=== PATIENT | male | born 1950 | race Two or more races ===

== ENCOUNTER 2018-09-20 16:27 | Emergency (ER) | payer OTHER ==
[2018-09-20] MEDS: hydrALAzine 20 MG INJ IV (17:21)
[2018-09-20 17:22] LABS: ADD MAN DIFF? NO
[2018-09-20 17:25] LABS: BASOPHIL # 0.1 10^3/ul (0.0-0.1); BASOPHILS % 0.6 % (0.0-2.0); EOSINOPHILS # 0.2 10^3/ul (0.0-0.5); EOSINOPHILS % 2.9 % (0.0-7.0); HEMATOCRIT 44.7 % (42.0-52.0); HEMOGLOBIN 13.6 g/dl (14.0-18.0); LYMPHOCYTES # 2.3 10^3/ul (0.8-2.9); LYMPHOCYTES % 27.5 % (15.0-51.0); MEAN CORPUSCULAR HEMOGLOBIN 25.4 pg (29.0-33.0); MEAN CORPUSCULAR HGB CONC 30.4 g/dl (32.0-37.0); MEAN CORPUSCULAR VOLUME 83.6 fl (82.0-101.0); MEAN PLATELET VOLUME 11.4 fl (7.4-10.4); MONOCYTE # 0.6 10^3/ul (0.3-0.9); NEUTROPHILS % 61.8 % (39.0-77.0); PLATELET COUNT 182 10^3/UL (140-415); RED BLOOD COUNT 5.35 10^6/ul (4.70-6.10); RED CELL DISTRIBUTION WIDTH 13.6 % (11.5-14.5)
[2018-09-20 17:25] LABS: WHITE BLOOD COUNT 8.2 10^3/ul (4.8-10.8)
[2018-09-20 17:45] LABS: ANION GAP 9 (5-13); BLOOD UREA NITROGEN 35 mg/dl (7-20); CALCIUM 9.1 mg/dl (8.4-10.2); CARBON DIOXIDE 28 mmol/L (21-31); CHLORIDE 101 mmol/L (97-110); CREATININE 1.39 mg/dl (0.61-1.24); Estimated GFR 51 mL/min (>60); GLUCOSE 335 mg/dl (70-220); MAGNESIUM 2.3 mg/dl (1.7-2.5); POTASSIUM 5.1 mmol/L (3.5-5.1); SODIUM 138 mmol/L (135-144)
[2018-09-20 17:55] LABS: TROPONIN-I 0.087 ng/ml (0.000-0.120)
== END 2018-09-20 21:43 | disposition short-term general hospital (02) ==
LOC: E/R 16:27
DX: I10 Essential (primary) hypertension (principal); N17.9 Acute kidney failure, unspecified; D64.9 Anemia, unspecified; E11.65 Type 2 diabetes mellitus with hyperglycemia; I25.810 Atherosclerosis of coronary artery bypass graft(s) without angina pectoris
CPT/HCPCS: 36415; 71045; 80048; 82962; 83735; 84443; 84484; 85025; 93005; 96374; 99285-25